=== PATIENT | female | born 1970 | race American Indian/Alaskan Native ===

== ENCOUNTER 2018-03-27 10:32 | Inpatient (IN) | payer BC, OTHER ==
--- NOTE | 2018-03-27 11:33 | Emergency Department Report ---
ED Chest Pain HPI - General Chief Complaint: Chest Pain Stated Complaint: CHEST PAIN Time Seen by Provider: 03/27/18 11:25 Source: patient Mode of arrival: Ambulatory Limitations: No Limitations - History of Present Illness Initial Comments: Patient is a 47-year-old female with past medical history of hypertension diabetes who is presenting with chest discomfort. Patient states a pressure-like sensation with shortness of breath is worse with movement. Patient states that yesterday her symptoms were intermittent over this morning t hey've been constant. She denies any diaphoresis nausea vomiting. Patient's also denies any cough cold congestion fevers or chills. Patient states that she does still have some discomfort at this time Severity scale (0 -10): 5 - Related Data Previous Rx's Medication Instructions Recorded Last Taken Type Atenolol [Tenormin] 25 mg PO QDAY #30 tablet 04/29/15 Unknown Rx Fe Fumarate/FA/Mv, Min Comb#15 1 each PO QDAY #30 capsule 04/29/15 Unknown Rx [Hemocyte Plus] Losartan [Cozaar] 50 mg PO QDAY #30 tablet 04/29/15 Unknown Rx cloNIDine [Catapres] 0.1 mg PO Q4H PRN #20 tablet 04/29/15 Unknown Rx Allergies Allergy/AdvReac Type Severity Reaction Status Date / Time No Known Allergies Allergy Verified 04/28/15 10:53 Heart Score - HEART Score History: Highly suspicious EKG: Non-specific Age: 45-65 Risk factors: 1-2 risk factors Troponin: < normal limit HEART Score: 5 ED Review of Systems ROS: Stated complaint: CHEST PAIN Other details as noted in HPI Constitutional: denies: chills, fever Eyes: denies: eye pain, eye discharge, vision change ENT: denies: ear pain, throat pain Respiratory: shortness of breath, SOB with exertion. denies: cough, SOB at rest, wheezing Cardiovascular: chest pain, dyspnea on exertion. denies: palpitations, orthopnea, edema, syncope, paroxysmal nocturnal dyspnea Endocrine: no symptoms reported Gastrointestinal: denies: abdominal pain, nausea, diarrhea Genitourinary: denies: urgency, dysuria, discharge Musculoskeletal: denies: back pain, joint swelling, arthralgia Skin: denies: rash, lesions Neurological: denies: headache, weakness, paresthesias Psychiatric: denies: anxiety, depression Hematological/Lymphatic: denies: easy bleeding, easy bruising ED Past Medical Hx - Past Medical History Hx Hypertension: Yes ("during ") Hx Congestive Heart Failure: No Hx Diabetes: Yes ("during ") Hx Sickle Cell Disease: No Hx Asthma: No Hx COPD: No Additional medical history: anemia - Surgical History Past Surgical History?: No - Social History Smoking Status: Never Smoker Substance Use Type: Alcohol - Medications Home Medications: Home Medications Medication Instructions Recorded Confirmed Last Taken Type Atenolol [Tenormin] 25 mg PO QDAY #30 tablet 04/29/15 Unknown Rx Fe Fumarate/FA/Mv, Min Comb#15 1 each PO QDAY #30 capsule 04/29/15 Unknown Rx [Hemocyte Plus] Losartan [Cozaar] 50 mg PO QDAY #30 tablet 04/29/15 Unknown Rx cloNIDine [Catapres] 0.1 mg PO Q4H PRN #20 tablet 04/29/15 Unknown Rx ED Physical Exam - General Limitations: No Limitations General appearance: alert, in no apparent distress - Head Head exam: Present: atraumatic, normocephalic - Eye Eye exam: Present: normal appearance - ENT ENT exam: Present: mucous membranes moist - Neck Neck exam: Present: normal inspection - Respiratory Respiratory exam: Present: normal lung sounds bilaterally. Absent: respiratory distress, wheezes, rales, rhonchi, chest wall tenderness - Cardiovascular Cardiovascular Exam: Present: regular rate, normal rhythm. Absent: systolic murmur, diastolic murmur, rubs, gallop - GI/Abdominal GI/Abdominal exam: Present: soft, normal bowel sounds. Absent: distended, tenderness, guarding - Extremities Exam Extremities exam: Present: normal inspection - Back Exam Back exam: Present: normal inspection - Neurological Exam Neurological exam: Present: alert, oriented X3 - Psychiatric Psychiatric exam: Present: normal affect, normal mood - Skin Skin exam: Present: warm, dry, intact, normal color. Absent: rash ED Course Vital Signs 03/27/18 03/27/18 03/27/18 10:46 11:42 11:47 Temperature 97.8 F Pulse Rate 101 H 101 H 91 H Respiratory 16 Rate Blood Pressure 181/99 150/95 Blood Pressure 181/99 [Right] O2 Sat by Pulse 100 Oximetry VERO score - Vero Score Age > 65: (0) No Aspirin use within the Past 7 Days: (0) No 3 or more CAD Risk Factors: (1) Yes 2 or more Angina events in past 24 hrs: (1) Yes Known CAD with more than 50% Stenosis: (0) No Elevated Cardiac Markers: (0) No ST Deviation Greater than 0.5mm: (0) No VERO Score: 2 ED Medical Decision Making - Lab Data Result diagrams: 03/27/18 12:12 03/27/18 12:12 - EKG Data -: EKG Interpreted by Me EKG shows normal: sinus rhythm, axis, intervals, QRS complexes, ST-T waves Rate: normal - EKG Data Interpretation: LVH - Radiology Data Radiology results: report reviewed CXR WNL - Medical Decision Making Patient is a 47 Female heart score of 5 who is complaining of some chest discomfort. Patient states discomfort did improve with nitroglycerin. Patient first troponin is negative patient be admitted to the hospitalist for further cardiac risk application and cardiology consult. Critical Care Time: Yes (30) Critical care attestation.: If time is entered above; I have spent that time in minutes in the direct care of this critically ill patient, excluding procedure time. ED Disposition Clinical Impression: Hypertensive urgency, malignant Chest pain Qualifiers: Chest pain type: unspecified Qualified Code(s): R07.9 - Chest pain, unspecified Disposition: DC-09 OP ADMIT IP TO THIS HOSP Is pt being admited?: Yes Does the pt Need Aspirin: No Condition: Stable Instructions: Chest Pain (ED) Time of Disposition: 13:08
[2018-03-27] MEDS ORDERED: ASPIRIN PO ONE (11:34)
[2018-03-27] MEDS: NITROSTAT SL ONE ×2 (11:42→11:47)
--- NOTE | 2018-03-27 12:01 | XRay Report ---
AP CHEST: HISTORY: chest pain AP view of the chest demonstrates a normal mediastinal and cardiac contour with clear lungs and normal bony and soft tissue structures. IMPRESSION: Unremarkable AP chest.
[2018-03-27 12:31] LABS: Basophils % (Auto) 0.7 % (0.0-1.8); Eosinophils # (Auto) 0.1 K/mm3 (0.0-0.4); Eosinophils % (Auto) 1.5 % (0.0-4.3); Hematocrit 33.1 % (30.3-42.9); Hemoglobin 10.5 gm/dl (10.1-14.3); Lymphocytes % (Auto) 28.6 % (13.4-35.0); Mean Corpuscular HGB Conc 32 % (30-34); Mean Corpuscular Volume 73 fl (79-97); Monocytes # (Auto) 0.4 K/mm3 (0.0-0.8); Monocytes % (Auto) 10.1 % (0.0-7.3); Platelet Count 158 K/mm3 (140-440); Red Blood Count 4.55 M/mm3 (3.65-5.03); Red Cell Distribution Width 18.7 % (13.2-15.2)
[2018-03-27 12:41] LABS: INR 0.98 (0.87-1.13); Partial Thromboplastin Time 20.1 Sec. (24.2-36.6)
[2018-03-27 12:44] LABS: BUN/Creatinine Ratio 15; Blood Urea Nitrogen 9 mg/dL (7-17); Calcium 9.4 mg/dL (8.4-10.2); Hemolysis Index 1
--- NOTE | 2018-03-27 13:55 | History and Physical Report ---
History of Present Illness Chief complaint: My chest hurts real bad History of present illness: 47 YO Female with Obesity, HTN, DM presents to ED for evaluation. Pt states that she has experienced pain in her chest over the past 2 days with acute worsening of symptoms while at work today. Pt states that pain is 5-7/10, substernal, intermittent over the past 2 days but has become constant since this morning, radiates to back, associated with nausea, diaphoresis, and shortness of breath, crushing in nature, worsened with exertion, relieved with rest. Pt acknowledges decreased exercise tolerance, leg edema. Pt denies fever, chills, palpitations, prolonged travel/immobility, unilateral leg swelling, calf pain, hemoptysis, individual/family history of DVT/PE. Pt mother had an DE at 35 years of age. Pt admitted to telemetry, and initiated on chest pain protocol. cardiology consulted in ED. Past History Past Medical History: diabetes, hypertension Past Surgical History: No surgical history (reviewed) Social history: , lives with family. denies: smoking, alcohol abuse Family history: CAD, hypertension Medications and Allergies Allergies Allergy/AdvReac Type Severity Reaction Status Date / Time No Known Allergies Allergy Verified 04/28/15 10:53 Home Medications Medication Instructions Recorded Confirmed Last Taken Type Atenolol [Tenormin] 25 mg PO QDAY #30 tablet 04/29/15 03/27/18 03/27/18 Rx Losartan/Hydrochlorothiazide 1 each PO DAILY 03/27/18 03/27/18 03/27/18 History [Losartan-Hctz 50-12.5 mg Tab] glipiZIDE [Glipizide] 5 mg PO BID 03/27/18 03/27/18 03/27/18 History Review of Systems Constitutional: no weight loss, no fever, no night sweats Ears, nose, mouth and throat: no ear pain, no decreased hearing Breasts: no change in shape, no mass, no skin changes Cardiovascular: chest pain, edema, shortness of breath, decreased exercise tolerance, no palpitations Respiratory: no cough, no excessive sputum Gastrointestinal: no nausea, no diarrhea, no change in bowel habits Genitourinary Female: no pelvic pain, no flank pain Rectal: no pain, no incontinence, no bleeding Musculoskeletal: no neck pain, no shooting arm pain, no shooting leg pain Integumentary: no pruritis, no sores, no jaundice Neurological: no transient paralysis, no weakness, no numbness Psychiatric: no anxiety, no memory loss, no insomnia, no suicidal ideation Endocrine: no heat intolerance, no polyphagia, no polydipsia, no polyuria Hematologic/Lymphatic: no easy bruising, no easy bleeding Allergic/Immunologic: no urticaria, no wheezing, no persistent infections Exam - Constitutional Vitals: Temp Pulse Resp BP Pulse Ox 97.8 F 81 18 175/95 99 03/27/18 10:46 03/27/18 13:34 03/27/18 13:32 03/27/18 13:32 03/27/18 13:33 General appearance: Present: mild distress, obese - EENT Eyes: Present: PERRL ENT: hearing intact, clear oral mucosa - Neck Neck: Present: supple, normal ROM - Respiratory Respiratory effort: normal Respiratory: bilateral: CTA - Cardiovascular Heart Sounds: Present: S1 & S2. Absent: rub, click - Extremities Extremities: pulses symmetrical, No edema Peripheral Pulses: within normal limits - Abdominal General gastrointestinal: Present: soft, non-tender, non-distended, normal bowel sounds Female genitourinary: Present: normal - Integumentary Integumentary: Present: clear, warm, dry - Musculoskeletal Musculoskeletal: gait normal, strength equal bilaterally - Psychiatric Psychiatric: appropriate mood/affect, intact judgment & insight - Neurologic Neurologic: CNII-XII intact, moves all extremities Results - Labs CBC & Chem 7: 03/27/18 12:12 03/27/18 12:12 Labs: Abnormal lab results 03/27/18 03/27/18 03/27/18 Range/Units 12:12 12:12 12:12 WBC 3.6 L (4.5-11.0) K/mm3 MCV 73 L (79-97) fl MCH 23 L (28-32) pg RDW 18.7 H (13.2-15.2) % [place] % (Auto) 10.1 H (0.0-7.3) % Lymph # 1.0 L (1.2-5.4) K/mm3 APTT 20.1 L (24.2-36.6) Sec. Chloride 94.8 L (98-107) mmol/L Carbon Dioxide 32 H (22-30) mmol/L Creatinine 0.6 L (0.7-1.2) mg/dL Glucose 259 H (65-100) mg/dL Assessment and Plan - Patient Problems (1) Diastolic CHF Current Visit: Yes Status: Suspected Qualifiers: Heart failure chronicity: acute Qualified Code(s): I50.31 - Acute diastolic (congestive) heart failure Plan to address problem: Admit to telemetry: Cardiology consulted in ED, Echo, strict I/O, daily weight, bnp, d dimer, monitor uop q shift, chest x ray,pulse oximetry, d dimer (2) Diabetes Current Visit: Yes Status: Acute Plan to address problem: ADA diet, insulin, accu check (3) Chest pain Current Visit: Yes Status: Acute Qualifiers: Chest pain type: unspecified Qualified Code(s): R07.9 - Chest pain, uns pecified Plan to address problem: Admit to telemetry: cardiology consulted in ED, stress test, serial cardiac enzymes, ekg, morphine, supplemental oxygen, nitro, aspirin. (4) Obesity Current Visit: No Status: Chronic Qualifiers: Body mass index: BMI 40.0-44.9 Plan to address problem: balanced diet, increased physical activity at discharge (5) DVT prophylaxis Current Visit: Yes Status: Acute Plan to address problem: SCD to BLE while in bed.
[2018-03-27] MEDS ORDERED: CATAPRES PO PRN (13:57)
[2018-03-27] MEDS ORDERED: ZOFRAN IV PRN (14:00)
[2018-03-27] MEDS ORDERED: TYLENOL PO PRN (14:00)
[2018-03-27] MEDS ORDERED: SODIUM CHLORIDE FLUSH SYRINGE 10 ML IV PRN ×2 (14:00→14:04)
[2018-03-27] MEDS ORDERED: BABY ASPIRIN PO STA (14:04)
[2018-03-27 15:20] LABS: Free T4 (Free Thyroxine) 0.99 ng/dL (0.76-1.46)
[2018-03-27 15:39] LABS: Chol/HDL Ratio 2.45 %; HDL Cholesterol 80 mg/dL (40-59); LDL Cholesterol,Direct 110 mg/dL (50-130)
[2018-03-27] MEDS: PROTONIX PO SCH (21:44)
[2018-03-27] MEDS: SODIUM CHLORIDE FLUSH SYRINGE 10 ML IV SCH (21:45)
[2018-03-28] MEDS ORDERED: D50W (25GM) Syringe IV PRN (06:46)
--- NOTE | 2018-03-28 08:31 | Progress Note ---
Assessment and Plan Assessment and plan: Atypical chest pain; rule out acute coronary syndrome Continue current medications, echocardiogram for EF, stress test to rule out reversible ischemia --Type 2 diabetes mellitus; moderate control, continue Accu-Chek sliding scale coverage ADA diet, Oral hypoglycemics --Dyslipidemia; continue statin --Hypertension; moderate control, continue current antihypertensives and when necessary medications --Morbid Obesity; BMI 41.7 Advised weight reduction and medically stable --DVT prophylaxis; Lovenox Closely monitor the patient and adjust management as needed Hospitalist Physical - Constitutional Vitals: Temp Pulse Resp BP Pulse Ox 98.2 F 72 18 155/59 99 03/28/18 04:42 03/28/18 04:42 03/28/18 04:42 03/28/18 04:42 03/28/18 04:42 General appearance: Present: no acute distress, well-nourished, obese - EENT Eyes: Present: PERRL, EOM intact - Neck Neck: Present: supple, normal ROM - Respiratory Respiratory effort: normal Respiratory: negative: rales, rhonchi, wheezing - Cardiovascular Rhythm: regular Heart Sounds: Present: S1 & S2 - Extremities Extremities: no ischemia, No edema Peripheral Pulses: within normal limits - Abdominal General gastrointestinal: soft, non-tender, non-distended - Integumentary Integumentary: Present: clear, warm - Psychiatric Psychiatric: appropriate mood/affect, cooperative - Neurologic Neurologic: CNII-XII intact, moves all extremities Results - Labs CBC & Chem 7: 03/27/18 12:12 03/27/18 12:12 Labs: Laboratory Last Values WBC 3.6 K/mm3 (4.5-11.0) L 03/27/18 12:12 RBC 4.55 M/mm3 (3.65-5.03) 03/27/18 12:12 Hgb 10.5 gm/dl (10.1-14.3) 03/27/18 12:12 Hct 33.1 % (30.3-42.9) 03/27/18 12:12 MCV 73 fl (79-97) L 03/27/18 12:12 MCH 23 pg (28-32) L 03/27/18 12:12 MCHC 32 % (30-34) 03/27/18 12:12 RDW 18.7 % (13.2-15.2) H 03/27/18 12:12 Plt Count 158 K/mm3 (140-440) 03/27/18 12:12 Lymph % (Auto) 28.6 % (13.4-35.0) 03/27/18 12:12 [place] % (Auto) 10.1 % (0.0-7.3) H 03/27/18 12:12 Eos % (Auto) 1.5 % (0.0-4.3) 03/27/18 12:12 Baso % (Auto) 0.7 % (0.0-1.8) 03/27/18 12:12 Lymph # 1.0 K/mm3 (1.2-5.4) L 03/27/18 12:12 [place] # 0.4 K/mm3 (0.0-0.8) 03/27/18 12:12 Eos # 0.1 K/mm3 (0.0-0.4) 03/27/18 12:12 Baso # 0.0 K/mm3 (0.0-0.1) 03/27/18 12:12 Seg Neutrophils % 59.1 % (40.0-70.0) 03/27/18 12:12 Seg Neutrophils # 2.1 K/mm3 (1.8-7.7) 03/27/18 12:12 PT 13.6 Sec. (12.2-14.9) 03/27/18 12:12 INR 0.98 (0.87-1.13) 03/27/18 12:12 APTT 20.1 Sec. (24.2-36.6) L 03/27/18 12:12 D-Dimer 139.56 ng/mlDDU (0-234) 03/27/18 12:12 Sodium 138 mmol/L (137-145) 03/27/18 12:12 Potassium 3.8 mmol/L (3.6-5.0) 03/27/18 12:12 Chloride 94.8 mmol/L (98-107) L 03/27/18 12:12 Carbon Dioxide 32 mmol/L (22-30) H 03/27/18 12:12 Anion Gap 15 mmol/L 03/27/18 12:12 BUN 9 mg/dL (7-17) 03/27/18 12:12 Creatinine 0.6 mg/dL (0.7-1.2) L 03/27/18 12:12 Estimated GFR > 60 ml/min 03/27/18 12:12 BUN/Creatinine Ratio 15 % 03/27/18 12:12 Glucose 259 mg/dL (65-100) H 03/27/18 12:12 Calcium 9.4 mg/dL (8.4-10.2) 03/27/18 12:12 Troponin T < 0.010 ng/mL (0.00-0.029) 03/27/18 17:39 NT-Pro-B Natriuret Pep 33.58 pg/mL (0-450) 03/27/18 14:45 Triglycerides 100 mg/dL (2-149) 03/27/18 14:45 Cholesterol 196 mg/dL (50-199) 03/27/18 14:45 LDL Cholesterol Direct 110 mg/dL (50-130) 03/27/18 14:45 HDL Cholesterol 80 mg/dL (40-59) H 03/27/18 14:45 Cholesterol/HDL Ratio 2.45 % 03/27/18 14:45 TSH 1.990 mlU/mL (0.270-4.200) 03/27/18 14:45 Free T4 0.99 ng/dL (0.76-1.46) 03/27/18 14:45
[2018-03-28] MEDS ORDERED: LEXISCAN IV ONE ×2 (08:38→09:16)
[2018-03-28] MEDS ORDERED: HCTZ PO SCH (10:00)
[2018-03-28] MEDS ORDERED: NON-FORMULARY (Losartan/Hydrochlorothiazide [Losartan-Hctz 50-12.5 Mg Tab] 1 EACH) PO SCH (10:00)
[2018-03-28] MEDS ORDERED: HEMOCYTE PLUS PO SCH (10:00)
[2018-03-28] MEDS ORDERED: TENORMIN PO SCH (10:00)
[2018-03-28] MEDS ORDERED: COZAAR PO SCH (10:00)
[2018-03-28] MEDS: PROTONIX PO SCH (11:33)
[2018-03-28] MEDS: SODIUM CHLORIDE FLUSH SYRINGE 10 ML IV SCH (11:35)
[2018-03-28] MEDS: GLUCOTROL PO SCH ×2 (11:40→17:59)
[2018-03-28] MEDS: HumaLOG SUB-Q SCH ×2 (11:41)
--- NOTE | 2018-03-28 11:53 | Event Note ---
Date: 03/28/18 Atypical chest pain Normal LVEF by echo Normal stress MPI with good exercise tolerance Normal CXR Negative Lisa No ischemic ECG findings No further cardiac work-up is needed Follow-up with PCP
[2018-03-28 12:26] VITALS: BP 156/82
--- NOTE | 2018-03-28 14:01 | Treadmill Report ---
ORDERING PHYSICIAN: Michael Araujo M.D. FINDINGS: There is no scintigraphic evidence of myocardial ischemia. The left ventricle is normal in size and systolic function with left ventricular ejection fraction is measured at 63%. Normal wall motion and wall thickening is noted on gated imaging. CONCLUSION: Normal perfusion scan. JOB# [id number] CHANDANA/NTS
--- NOTE | 2018-03-28 15:11 | Discharge Summary ---
Providers - Providers Date of Admission: 03/27/18 14:00 Date of discharge: 03/28/18 Attending physician: MAGALYS NG 03/27/18 Consult to Cardiac Rehabilitation [CONS] Routine Reason For Exam: Phase I 03/27/18 14:04 Consult to Cardiology [CONS] Routine Consulting Provider: ADAL GREENWOOD Reason For Exam: chf Primary care physician: [employer] Hospitalization Reason for admission: Chest pain Condition: Stable Pertinent studies: ECHO : EF 55-60% normal systolc and diastolic function Hospital course: 47 YO Female with Obesity, HTN, DM was admitted through ED with chest pain over the past 2 days. Patient was managed symtomatically . Patient had ECHO with normal EF,Underwent Stress test,negative for ischemia.Chest pain non cardiac ,probably due to GERD., managed with protonix. Today patient is comfortable,no new complaints,vital signs stable,physical exam is unremarkable. Stable at discharge Discharge diagnosis: --Atypical chest pain;non cardiac chest pain.probably sec to GERD, stress test negative,EF normal --GERD : with chest pain ,advised protonix --Type 2 diabetes mellitus; moderate control, continue Accu-Chek sliding scale coverage ADA diet, Oral hypoglycemics --Dyslipidemia; continue statin --Hypertension; moderate control, continue current antihypertensives and when necessary medications --Morbid Obesity; BMI 41.7: Advised weight reduction and medically stable Disposition: DC-01 TO HOME OR SELFCARE Time spent for discharge: 31 min Core Measure Documentation - Palliative Care Palliative Care/ Comfort Measures: Not Applicable - Core Measures Any of the following diagnoses?: none Exam - Constitutional Vitals: Temp Pulse Resp BP Pulse Ox 98.2 F 75 20 156/82 98 03/28/18 04:42 03/28/18 12:08 03/28/18 12:08 03/28/18 12:08 03/28/18 12:08 General appearance: Present: no acute distress, well-nourished - EENT Eyes: Present: PERRL, EOM intact - Neck Neck: Present: supple, normal ROM - Respiratory Respiratory effort: normal Respiratory: bilateral: diminished, negative: rales, rhonchi, wheezing - Cardiovascular Rhythm: regular Heart Sounds: Present: S1 & S2 - Extremities Extremities: no ischemia, No edema Peripheral Pulses: within normal limits - Abdominal General gastrointestinal: Present: soft, non-tender, non-distended, normal bowel sounds - Integumentary Integumentary: Present: clear, warm - Musculoskeletal Musculoskeletal: strength equal bilaterally - Psychiatric Psychiatric: appropriate mood/affect, cooperative - Neurologic Neurologic: CNII-XII intact, moves all extremities Plan Activity: no restrictions Diet: diabetic Follow up with: PRIMARY CARE, [Primary Care Provider] - 3-5 Days LAKEISHA GARCIA MD [Staff Physician] - 7 Days Prescriptions: Nitroglycerin [Nitrostat] 0.4 mg SL Q1H PRN #20 tab.subl PRN Reason: Chest Pain Pantoprazole [Protonix] 40 mg PO QDAY #20 tablet
== END 2018-03-28 18:59 | disposition home or self-care (01) | DRG 291 ==
LOC: ED 10:32 → 4A 14:00
PROVIDERS: ADMIT Internal Medicine; ATTEND Internal Medicine
DX: I11.0 Hypertensive heart disease with heart failure (principal); I50.31 Acute diastolic (congestive) heart failure; E66.2 Morbid (severe) obesity with alveolar hypoventilation; Z68.41 Body mass index [BMI] 40.0-44.9, adult; R07.89 Other chest pain; E11.9 Type 2 diabetes mellitus without complications; E78.5 Hyperlipidemia, unspecified; I16.0 Hypertensive urgency; Z82.49 Family history of ischemic heart disease and other diseases of the circulatory system; Z79.84 Long term (current) use of oral hypoglycemic drugs
CPT/HCPCS: 36415; 71045; 78452; 80048; 80061; 82962; 83880; 84439; 84443; 84484; 85025; 85379; 85610; 85730; 93005; 93010; 93017; 93306; G0378; A9270-GY; A9502; J2785